=== PATIENT | female | born 1985 | race Caucasian/White ===

== ENCOUNTER → 2021-01-16 | Day surgery (SDC) | payer OTHER ==
[~2021-01-16] MED LIST: CALCIUM500 MG PO; MULTI-VITAMIN1 EACH PO; OMEPRAZOLE40 MG PO; SINGULAIR10 MG PO; TORADOL 10 MG T10 MG PO; VITAMIN D21250 MCG PO; VITAMIN D3125 MCG PO; ZYRTEC10 MG PO
== END | disposition home or self-care (01) ==
LOC: OR 06:49
DX: G56.03 Carpal tunnel syndrome, bilateral upper limbs (principal); K21.9 Gastro-esophageal reflux disease without esophagitis; Z98.84 Bariatric surgery status; Z79.899 Other long term (current) drug therapy
CPT/HCPCS: 84703; J1100; J1200; J1885; J2001; J2250; J2405; J2704; J3010; J7120